=== PATIENT | male | born 1945 | race Caucasian/White ===

== ENCOUNTER 2018-08-11 19:33 | Emergency (ER) | payer MEDICARE, OTHER ==
[~2018-08-11] VITALS: Ht 172.7 cm; Wt 83.6 kg
[2018-08-11 19:34] VITALS: BP 142/82
[2018-08-11] MEDS ORDERED: HYDROcodone/APAP 5/325 TABLET ONE (19:58)
[2018-08-11] MEDS ORDERED: CLINDAMYCIN 300 MG CAPSULE ONE (20:01)
[2018-08-11] MEDS ORDERED: HYDROcodone/APAP 5/325 TABLET PO STA (20:11)
[2018-08-11] MEDS ORDERED: CLINDAMYCIN 300 MG CAPSULE PO ONE (20:30)
== END 2018-08-11 20:37 | disposition home or self-care (01) ==
LOC: ED 20:12
DX: K08.89 Other specified disorders of teeth and supporting structures (principal)
CPT/HCPCS: 99283